=== PATIENT | female | born 1970 | race Caucasian/White ===

== ENCOUNTER 2021-01-10 13:34 | Emergency (ER) | payer BC ==
[2021-01-11 12:08] LABS: SARS-CoV-2 NAA Not Detected (Not Detected)
== END 2021-01-10 14:49 | disposition home or self-care (01) ==
LOC: JVIRT 13:34
DX: R05 Cough (principal); J02.9 Acute pharyngitis, unspecified; R50.9 Fever, unspecified; Z11.52 Encounter for screening for COVID-19
CPT/HCPCS: C9803; Q3014-GT; U0003; U0005

== ENCOUNTER 2023-12-12 20:50 | Emergency (ER) | payer BC ==
[2023-12-12 20:58] VITALS: BP 122/79; PULSE 85; RESP 19; TEMP 97.8; BMI 21.7
[2023-12-12] MEDS ORDERED: IBUPROFEN 600 MG TABLET (FP) PO ONE (22:04)
[2023-12-12] MEDS ORDERED: ACETAMINOPHEN 500 MG TABLET (FP) ONE (22:04)
[2023-12-12] MEDS: ACETAMINOPHEN 500 MG TABLET (FP) PO ONE (22:06)
[2023-12-12] MEDS: IBUPROFEN 600 MG TABLET (FP) PO ONE (22:06)
[2023-12-12] MEDS ORDERED: AMOX TR/POT CLAV 875MG/125MG TABLETS (FP) ONE (22:37)
[2023-12-12] MEDS: AMOX TR/POT CLAV 875MG/125MG TABLETS (FP) PO ONE (22:40)
== END 2023-12-12 23:34 | disposition home or self-care (01) ==
LOC: JER 20:50 → JERFT 20:50
DX: S81.851A Open bite, right lower leg, initial encounter (principal); W54.0XXA Bitten by dog, initial encounter
CPT/HCPCS: 73590-TC-RT-FY; 99283-25